=== PATIENT | male | born 1960 | race Caucasian/White ===

== ENCOUNTER 2017-06-24 20:43 | Inpatient (IN) | payer OTHER ==
[~2017-06-24] VITALS: Ht 172.7 cm; Wt 70.0 kg
[2017-06-24] MEDS ORDERED: VANCOMYCIN 1 GM (PMX) 250 ML IVPB STA (21:51)
[2017-06-24] MEDS ORDERED: PIPER-TAZO 3.375 GM IV (PMX) 100 ML IVPB STA (22:19)
[2017-06-24 22:43] LABS: BASOPHILS % 0.2 % (0.0-2.0); EOSINOPHILS # 0.1 10^3/ul (0.0-0.5); EOSINOPHILS % 0.5 % (0.0-7.0); HEMATOCRIT 39.2 % (42.0-52.0); HEMOGLOBIN 13.3 g/dl (14.0-18.0); LYMPHOCYTES # 2.3 10^3/ul (0.8-2.9); LYMPHOCYTES % 22.4 % (15.0-51.0); MEAN CORPUSCULAR HEMOGLOBIN 29.2 pg (29.0-33.0); MEAN CORPUSCULAR HGB CONC 33.9 g/dl (32.0-37.0); MEAN CORPUSCULAR VOLUME 86.2 fl (82.0-101.0); MEAN PLATELET VOLUME 10.3 fl (7.4-10.4); MONOCYTE # 0.6 10^3/ul (0.3-0.9); NEUTROPHIL # 7.4 10^3/ul (1.6-7.5); NEUTROPHILS % 70.6 % (39.0-77.0); PLATELET COUNT 175 10^3/UL (140-415); RED BLOOD COUNT 4.55 10^6/ul (4.70-6.10); RED CELL DISTRIBUTION WIDTH 12.7 % (11.5-14.5); WHITE BLOOD COUNT 10.5 10^3/ul (4.8-10.8)
[2017-06-24 22:57] LABS: INR 0.97; PARTIAL THROMBOPLASTIN TIME 31.6 Sec (25.0-35.0); PROTIME 12.9 Sec (12.2-14.2)
[2017-06-24 23:01] LABS: ADD UMIC YES; UR ASCORBIC ACID NEGATIVE (NEGATIVE); UR BILIRUBIN (Dip) NEGATIVE (NEGATIVE); UR BLOOD (Dip) 1+ mg/dL (NEGATIVE); UR CLARITY CLEAR (CLEAR); UR COLOR YELLOW (YELLOW); UR GLUCOSE (Dip) NEGATIVE (NEGATIVE); UR KETONES (Dip) NEGATIVE (NEGATIVE); UR LEUKOCYTE ESTERASE (Dip) NEGATIVE Leu/ul (NEGATIVE); UR MUCUS FEW /HPF (NONE SEEN); UR NITRITE (Dip) NEGATIVE (NEGATIVE); UR RBC 12 /HPF (0-5); UR SPECIFIC GRAVITY (Dip) 1.024 (1.003-1.030); UR TOTAL PROTEIN (Dip) NEGATIVE (NEGATIVE); UR UROBILINOGEN (Dip) 1+ mg/dL (NEGATIVE)
[2017-06-24 23:12] LABS: ALBUMIN 3.8 g/dl (3.3-4.9); ALBUMIN/GLOBULIN RATIO 1.26; BILIRUBIN,INDIRECT 0.7 mg/dl (0-1.1); BILIRUBIN,TOTAL 0.7 mg/dl (0.2-1.3); CALCIUM 8.9 mg/dl (8.4-10.2); CREATININE 0.77 mg/dl (0.61-1.24); POTASSIUM 4.1 mmol/L (3.5-5.1); TOTAL PROTEIN 6.8 g/dl (6.1-8.1)
--- NOTE | 2017-06-24 23:50 | ERD ---
ER Documentation Chief Complaint Date/Time DATE: 06/24/17 TIME: 22:29 Chief Complaint left knee pain w/ open wound x 5 days HPI This is a 57-year-old male without any medical problems presenting to the emergency department complaining of left knee pain with surrounding redness for the past 5 days that started to radiate to his groin yesterday. Patient states the pain is moderate in severity. Denies fevers. ROS All systems reviewed and are negative except as per history of present illness. Allergies Allergies: Coded Allergies: No Known Allergy (Unverified , 06/24/17) PMhx/Soc Medical and Surgical Hx: pt denies Medical Hx, pt denies Surgical Hx Hx Alcohol Use: No Hx Substance Use: No Hx Tobacco Use: Yes Smoking Status: Current every day smoker Physical Exam Vitals Vital Signs Date Time Temp Pulse Resp B/P Pulse Ox O2 Delivery O2 Flow Rate FiO2 06/24/17 20:49 98.2 76 20 147/84 100 Physical Exam General: WD/WN, in no apparent distress, non-toxic appearing HENT: NC/AT Eyes: Conjunctiva normal Neck: Supple Pulm: Clear to auscultation, normal labored breathing; no wheezing/rales/ rhonchi heard CV: Good capillary refill GI: Non-distended, no guarding Back: No masses Ext: No clubbing, cyanosis, or edema Neuro: Moves on all fours Skin: abscess on the left knee with surrounding cellulitis and streaking to groin Psych: Normal mood Results 24 hrs Current Medications Medications (Trade) Dose Ordered Sig/Katherine Route PRN Reason Start Time Stop Time Status Last Admin Dose Admin Vancomycin HCl 250 ml @ 125 mls/hr ONCE STAT IVPB 06/24/17 21:51 06/24/17 23:50 Piperacillin Sod/ Tazobactam Sod (Zosyn 3.375gm/ 100 ml (Pmx)) 100 ml @ 200 mls/hr ONCE STAT IVPB 06/24/17 22:19 06/24/17 22:48 Procedures/MDM This is a 57-year-old male presenting to the emergency department with abscess/ cellulitis and lymphangitis. There was no evidence of sepsis, patient has stable vital signs. He will need to be admitted for IV antibiotics. In the ED, blood work was drawn. CBC did not show any evidence of leukocytosis or anemia. CMP was unremarkable. Patient was given 1 g of Vanco and 3.375 of Zosyn. I have consulted my supervising physician Dr. Adames who has consulted the hospitalist Dr. Frey who accepted admission. Patient will be transferred to med/surg for further management and evaluation Departure Diagnosis: Primary Impression: Lymphangitis Additional Impression: Cellulitis Condition: Stable GREGORY MASTERSON PA-C Jun 24, 2017 22:39
[2017-06-25 02:34] VITALS: TEMP 98
[2017-06-25 02:50] VITALS: BP 144/82; PULSE 65; RESP 18
[2017-06-25 03:03] VITALS: Ht 172.7 cm; Wt 70.0 kg
[2017-06-25] MEDS ORDERED: ONDANSETRON 4 MG INJ IV PRN (04:00)
[2017-06-25] MEDS ORDERED: DOCUSATE SODIUM 100 MG CAP PO PRN (04:00)
[2017-06-25] MEDS ORDERED: VANCOMYCIN IV PER PHARMACY XX SCH (04:00)
[2017-06-25] MEDS ORDERED: NACL 0.9% 3 ML SYG IV SCH (04:00)
[2017-06-25] MEDS ORDERED: ACETAMINOPHEN 325 MG TAB PO PRN (04:00)
[2017-06-25] MEDS ORDERED: morphine 2 MG INJ IV PRN (04:00)
--- NOTE | 2017-06-25 04:02 | HP ---
Date/Time of Note Date/Time of Note DATE: 06/25/17 TIME: 03:52 Assessment/Plan VTE Prophylaxis VTE Prophylaxis Intervention: SCD's Lines/Catheters IV Catheter Type (from [facility] Sal[facility] Assessment/Plan Chief Complaint/Hosp Course This is a 57-year-old male being admitted to the [facility] floor for: #1 left lower extremity cellulitis: At the current time we will continue patient on IV vancomycin and Zosyn. There is visible cellulitis over the left knee however no redness noted along the medial thigh. There is however a warmth and tightness noted of the left medial thigh moving up towards the groin area. Patient however denies any pain or tenderness or swelling of the scrotum. Patient does not have any fevers or white blood cell count at this time, however I would like to further evaluate the left lower extremity to rule out any underlying abscess or fluid collection or other infectious etiology with a stat CAT scan of the left lower extremity. Also check a stat CK total level and a lactic acid level. The patient with IV pain control. #2 DVT and GI prophylaxis: SCDs, H2 mony Further treatment strategy will be implemented as per the clinical course. Problems: HPI/ROS Admit Date/Time Admit Date/Time Jun 25, 2017 at 00:39 Hx of Present Illness chief complaint: left knee pain/redness This is a 57-year-old male coming into the hospital today with a left knee pain and redness for the last 5 days. 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 Over the last 5 days he has noticed some bloody drainage from the knee wound area. Patient also has noticed redness around the knee and pain that has gone from the left knee up the medial side of his left thigh. He did say that he was massaging his thigh as well which may have made the pain worse. He states that when he walks he has pain. The only time he does not have pain is when he is not moving his left lower extremity. He denies any fevers. Denies any chest pain or shortness of breath. Allergies: NKDA Medications: None ROS Const: As per HPI Eyes : No pain discharge or redness or change in visual acuity ENT: No pain, sore throat, congestion, congestion, dysphagia or discharge Respiratory: No shortness of breath, cough, sputum, wheezing, or pleuritic pain Cardiovascular: No chest pain, palpitation, PND, or edema GI : no change in appetite, abdominal pain, nausea, vomiting, diarrhea, constipation, or change in the color his stool Genitourinary: No dysuria, hematuria, flank pain , discharge or CVA tenderness Musculoskeletal: As per HPI Skin: As per HPI Neuro: No headache, dizziness, syncope, seizure, focal weakness Endocrine: No polyuria, polydipsia, temperature intolerance Psych: No hallucination, depression, anxiety or suicidal ideation PMH/Family/Social Past Medical History Medical History: no pertinent history Past Surgical History Past Surgical Hx: no surgical history Family History Significant Family History: no pertinent family hx Social History Alcohol Use: none Smoking Status: Current every day smoker (Half pack per day 30 years) Drug Use: none Exam/Review of Systems Vital Signs Vitals Vital Signs Date Time Temp Pulse Resp B/P Pulse Ox O2 Delivery O2 Flow Rate FiO2 06/25/17 02:34 98.0 59 118/67 99 Room Air 06/24/17 23:49 19 Exam Exam General: Patient is well-developed male lying in bed in some mild pain. HEENT: Atraumatic, normocephalic. The pupils are equal, round and reactive. Extraocular motor are intact Neck: Supple with full range of motion. No rigidity or meningismus Chest: Nontender Lungs: Clear to auscultation bilaterally no crackles rales or wheezing Heart: Normal S1-S2, Regular rhythm and rate. No murmur, S3, or S4 Abdomen: Soft , nontender, nondistended , bowel sounds are present. No guarding no rebound tenderness , No masses or organomegaly. No costovertebral temporal angle mass Extremities: Wound noted of the left anterior knee with serosanguineous dry drainage , left knee tenderness to palpation, tender to palpation from the left knee along the medial aspect of the left thigh. No redness noted along the medial aspect of the left thigh. Tightness of the muscles of the left medial thigh. Neurologic: Normal mental status, speech normal, cranial nerves II through XII are intact, motor and sensory are intact, no focal weakness Labs Result Diagram: 06/24/17 2225 06/24/17 2225 CONSTANTINO VEGA Jun 25, 2017 04:01
[2017-06-25] MEDS: SOD CHLORIDE 0.9% 1,000 ML IV SCH ×2 (04:30→17:09)
[2017-06-25] MEDS: PIPER-TAZO 3.375 GM IV (PMX) 100 ML IVPB SCH ×3 (04:30→23:07)
[2017-06-25] MEDS ORDERED: PENDING SANTYL ORDER FOR WOUND CARE XX PRN (04:30)
[2017-06-25 08:35] VITALS: BP 111/71; RESP 18
[2017-06-25] MEDS: VANCOMYCIN 1 GM in NS 250 ML IVPB SCH ×2 (08:41→20:30)
[2017-06-25] MEDS: FAMOTIDINE 20 MG TAB PO SCH ×3 (08:41→20:30)
[2017-06-25 12:35] LABS: BASOPHILS % 0.2 % (0.0-2.0); EOSINOPHILS # 0.1 10^3/ul (0.0-0.5); EOSINOPHILS % 0.6 % (0.0-7.0); HEMOGLOBIN 12.8 g/dl (14.0-18.0); LYMPHOCYTES # 1.6 10^3/ul (0.8-2.9); LYMPHOCYTES % 19.8 % (15.0-51.0); MEAN CORPUSCULAR HGB CONC 33.7 g/dl (32.0-37.0); MEAN CORPUSCULAR VOLUME 86.2 fl (82.0-101.0); MEAN PLATELET VOLUME 10.5 fl (7.4-10.4); MONOCYTE # 0.5 10^3/ul (0.3-0.9); MONOCYTES % 5.7 % (0.0-11.0); NEUTROPHIL # 5.9 10^3/ul (1.6-7.5); NEUTROPHILS % 73.5 % (39.0-77.0); PLATELET COUNT 170 10^3/UL (140-415); RED BLOOD COUNT 4.41 10^6/ul (4.70-6.10); RED CELL DISTRIBUTION WIDTH 13.2 % (11.5-14.5); WHITE BLOOD COUNT 8.1 10^3/ul (4.8-10.8)
[2017-06-25 12:55] LABS: ALBUMIN 3.3 g/dl (3.3-4.9); ALBUMIN/GLOBULIN RATIO 1.22; BILIRUBIN,INDIRECT 1.6 mg/dl (0-1.1); BILIRUBIN,TOTAL 1.6 mg/dl (0.2-1.3); CALCIUM 8.5 mg/dl (8.4-10.2); CHOL/HDL RATIO 3.7 RATIO; CREATININE 0.72 mg/dl (0.61-1.24); MAGNESIUM 2.1 mg/dl (1.7-2.5); POTASSIUM 4.2 mmol/L (3.5-5.1)
[2017-06-25 14:29] VITALS: BP 103/60; RESP 20
[2017-06-25 19:30] VITALS: BP 107/54; RESP 16
[2017-06-26 02:00] VITALS: BP 102/56; RESP 18
[2017-06-26] MEDS: SOD CHLORIDE 0.9% 1,000 ML IV SCH ×2 (04:43→10:04)
[2017-06-26] MEDS: PIPER-TAZO 3.375 GM IV (PMX) 100 ML IVPB SCH ×3 (05:08→22:14)
[2017-06-26 07:58] VITALS: BP 115/73; RESP 16
[2017-06-26 09:26] LABS: CREATININE 0.89 mg/dl (0.61-1.24)
[2017-06-26] MEDS: VANCOMYCIN 1 GM in NS 250 ML IVPB SCH (10:02)
[2017-06-26] MEDS: FAMOTIDINE 20 MG TAB PO SCH ×2 (10:02→22:14)
[2017-06-26 14:00] VITALS: BP 111/75; RESP 18
[2017-06-26] MEDS ORDERED: IOHEXOL 300MG/ML 150 ML BTL ONE (16:56)
[2017-06-26] MEDS ORDERED: SOD CHLORIDE 0.9% 100 ML ONE (16:56)
--- NOTE | 2017-06-26 18:05 | PN ---
Date/Time of Note Date/Time of Note DATE: 06/26/17 TIME: 18:04 Assessment/Plan VTE Prophylaxis VTE Prophylaxis Intervention: SCD's Lines/Catheters IV Catheter Type (from Nrs): Peripheral IV Urinary Cath still in place: No Assessment/Plan Assessment/Plan #1 left lower extremity cellulitis: At the current time we will continue patient on IV vancomycin and Zosyn. There is visible cellulitis over the left knee however no redness noted along the medial thigh. There is however a warmth and tightness noted of the left medial thigh moving up towards the groin area. Patient however denies any pain or tenderness or swelling of the scrotum. Patient does not have any fevers or white blood cell count at this time, however I would like to further evaluate the left lower extremity to rule out any underlying abscess or fluid collection or other infectious etiology with a stat CAT scan of the left lower extremity. CT Knee has been ordered #2 DVT and GI prophylaxis: SCDs, H2 mony Further treatment strategy will be implemented as per the clinical course. Subjective 24 Hr Interval Summary Free Text/Dictation plan for CT today c/o knee pain Exam/Review of Systems Vital Signs Vitals Vital Signs Date Time Temp Pulse Resp B/P Pulse Ox O2 Delivery O2 Flow Rate FiO2 06/26/17 14:00 97.3 64 18 111/75 98 06/25/17 02:50 Room Air Intake and Output 06/25/17 06/25/17 06/26/17 15:00 23:00 07:00 Intake Total 250 ml 2830 ml 1240 ml Output Total 1300 ml Balance 250 ml 1530 ml 1240 ml Results Result Diagram: 06/25/17 1210 06/26/17 0839 Results 24 hrs Laboratory Tests Test 06/26/17 08:39 Blood Urea Nitrogen 11 Creatinine 0.89 Thyroid Stimulating Hormone (TSH) 0.896 Vancomycin Level Trough 8.8 L Medications Medications Current Medications Sodium Chloride (NS) 1,000 ml @ 80 mls/hr [id number] IV Last administered on 06/26t 10:04; Admin Dose 80 MLS/HR; Start 06/25/17 at 03:46 Ondansetron HCl (Zofran Inj) 4 mg Q6H PRN IV NAUSEA AND/OR VOMITING; Start 06/25 at 04:00 Acetaminophen (Tylenol Tab) 650 mg Q6H PRN PO PAIN LEVEL 1-3 OR FEVER Last administered on 06/25/17 14:57; Admin Dose 650 MG; Start 06/25/17 at 04:00 Morphine Sulfate (morphine) 2 mg Q4H PRN IV SEVERE PAIN LEVEL 7-10; Start at 04:00 Docusate Sodium (Colace) 100 mg Q12H PRN PO CONSTIPATION; Start 06/25/17 at 04: 00 Bisacodyl (Dulcolax) 5 mg DAILY PRN PO CONSTIPATION; Start 06/25/17 at 04:00 Famotidine 20 mg 20 mg Q12 PO Last administered on 06/26/17 10:02; Admin Dose 20 MG; Start 06/25/17 at 09:00 Piperacillin Sod/ Tazobactam Sod (Zosyn 3.375gm/ 100 ml (Pmx)) 100 ml @ 200 mls /hr Q8 IVPB Last administered on 06/26/17 13:50; Admin Dose 200 MLS/HR; Start 06/25/17 at 06:00 Miscellaneous Information This patient fay... PRN PRN XX WOUND CARE; Start at 04:30 Vancomycin HCl/ Sodium Chloride (Vancocin/NS) 250 ml @ 83.333 mls/ hr Q12H IVPB ; Start 06/26/17 at 22:00 NICOLAS KNIGHT MD Jun 26, 2017 18:05
--- NOTE | 2017-06-26 18:11 | RADRPT ---
PROCEDURE: CT left femur without and with intravenous contrast CLINICAL INDICATION: 57 years male left knee were not. Cellulitis and left thigh pain. TECHNIQUE: A noncontrast CT of the left femur from the left iliac wing to the proximal tibia was p erformed without and with intravenous contrast. 108 mL Omnipaque 300 was administered intravenously. Coronal and sagittal reformats were generated. CTDIvol: 4.5 and 5.5 mGy. DLP: 659 mGy-cm. COMPARISON: None. FINDINGS: There is a 0.9 x 1.8 cm fluid collection immediately beneath the skin at the anteromedial aspect of the patella that likely represents the patient's wound possibly with a small abscess. There is asso ciated soft tissue swelling within the subcutaneous fat greatest anterior to the patella and patella r tendon but also involving the subcutaneous fat of the distal thigh and proximal lower leg. There is a 0.8 x 2.9 x 4 cm fluid collection overlying the vastus medialis muscle at the medial aspect of the knee without internal gas and without a thick enhancing wall (5/195). No other fluid collection s are identified. Negative for abnormal soft tissue gas. No bony abnormality is identified. Normal alignment of the knee and hip. Small amount of knee join t fluid. Mild atherosclerosis superficial femoral artery. Arteries are patent. IMPRESSION: Small fluid collection in the in the subcutaneous fat beneath the skin anteromedial to the patella l ikely corresponds to the site of the patient's open wound and may represent a small abscess. There is edema in the surrounding subcutaneous fat extending into the distal thigh and lower leg in keepin g with the given history of cellulitis. Negative for abnormal soft tissue gas. Small fluid collection overlying vastus medialis muscle at the medial aspect of the knee is favored to represent loculated edema rather than an organized abscess. It measures 0.8 x 2.9 x 4 cm. RPTAT: HCTS Physician Maikel Date Time Electronically viewed and signed by Physician Maikel on 06/26/2017 18:10 /
[2017-06-26 19:32] VITALS: BP 112/72; RESP 20
[2017-06-26] MEDS: VANCOMYCIN 1.25 GM in SOD CHLORIDE 0.9% 250 ML IVPB SCH (22:14)
[2017-06-27 02:03] VITALS: BP 106/63; RESP 16
[2017-06-27] MEDS: PIPER-TAZO 3.375 GM IV (PMX) 100 ML IVPB SCH ×3 (05:29→23:02)
[2017-06-27] MEDS: SOD CHLORIDE 0.9% 1,000 ML IV SCH ×3 (05:30→23:03)
[2017-06-27 06:37] LABS: BASOPHILS % 0.3 % (0.0-2.0); EOSINOPHILS # 0.1 10^3/ul (0.0-0.5); EOSINOPHILS % 0.8 % (0.0-7.0); HEMATOCRIT 36.5 % (42.0-52.0); HEMOGLOBIN 12.2 g/dl (14.0-18.0); LYMPHOCYTES # 2.1 10^3/ul (0.8-2.9); LYMPHOCYTES % 29.8 % (15.0-51.0); MEAN CORPUSCULAR HEMOGLOBIN 29.3 pg (29.0-33.0); MEAN CORPUSCULAR HGB CONC 33.4 g/dl (32.0-37.0); MEAN CORPUSCULAR VOLUME 87.7 fl (82.0-101.0); MEAN PLATELET VOLUME 10.3 fl (7.4-10.4); MONOCYTE # 0.4 10^3/ul (0.3-0.9); NEUTROPHIL # 4.5 10^3/ul (1.6-7.5); PLATELET COUNT 169 10^3/UL (140-415); RED BLOOD COUNT 4.16 10^6/ul (4.70-6.10); WHITE BLOOD COUNT 7.1 10^3/ul (4.8-10.8)
[2017-06-27 07:15] VITALS: BP 105/61; RESP 18
[2017-06-27 07:24] LABS: CALCIUM 8.3 mg/dl (8.4-10.2); CREATININE 0.9 mg/dl (0.61-1.24); POTASSIUM 3.9 mmol/L (3.5-5.1)
[2017-06-27] MEDS: FAMOTIDINE 20 MG TAB PO SCH ×2 (09:37→23:02)
[2017-06-27] MEDS: BISACODYL (EC) 5 MG TAB PO PRN (09:37)
[2017-06-27] MEDS: VANCOMYCIN 1.25 GM in SOD CHLORIDE 0.9% 250 ML IVPB SCH ×2 (09:39→23:02)
[2017-06-27 14:02] VITALS: BP_SYST 105; BP_SYST 110; BP_DIAS 51; BP_DIAS 61; RESP 16; RESP 18
--- NOTE | 2017-06-27 15:36 | PN ---
Date/Time of Note Date/Time of Note DATE: 06/27/17 TIME: 15:34 Assessment/Plan VTE Prophylaxis VTE Prophylaxis Intervention: SCD's Lines/Catheters IV Catheter Type (from Nrsg): Peripheral IV Urinary Cath still in place: No Assessment/Plan Assessment/Plan #1 left lower extremity cellulitis: CT Knee showed significant edema with fluid collection, continue IV abx, Pain control, wound care consult orderd for today Case jessenia is instructed to set up home healh for wound care, Pt will need few more days of IV abx further #2 DVT and GI prophylaxis: SCDs, H2 mony Subjective 24 Hr Interval Summary Free Text/Dictation CT knee showed fluid colleciton more like edema vs collection, Afebrile, WBC COunt normal, on IV abx Exam/Review of Systems Vital Signs Vitals Vital Signs Date Time Temp Pulse Resp B/P Pulse Ox O2 Delivery O2 Flow Rate FiO2 06/27/17 14:02 98.2 55 16 110/51 98 06/25/17 02:50 Room Air Intake and Output 06/26/17 06/26/17 06/27/17 15:00 23:00 07:00 Intake Total 550 ml 1580 ml 1760 ml Balance 550 ml 1580 ml 1760 ml Exam Constitutional: alert Psych: no complaints Head: normocephalic Eyes: nl conjunctiva ENMT: nl external ears & nose Neck: supple Respiratory: clear to auscultation, diminished breath sounds, normal air movement Cardiovascular: nl pulses, regular rate and rhythm Gastrointestinal: nl liver, spleen, non-tender, soft Musculoskeletal: nl extremities to inspection, other (left knee redness iwth overlying dressing on it ) 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5 Lymphocytes # 2.1 Monocytes # 0.4 Eosinophils # 0.1 Basophils # 0.0 Nucleated Red Blood Cells # 0.0 Sodium Level 143 Potassium Level 3.9 Chloride Level 105 Carbon Dioxide Level 27 Anion Gap 15 Blood Urea Nitrogen 12 Creatinine 0.90 Glucose Level 83 Calcium Level 8.3 L Medications Medications Current Medications Sodium Chloride (NS) 1,000 ml @ 80 mls/hr [id number] IV Last administered on 06/27 05:30; Admin Dose 80 MLS/HR; Start 06/25/17 at 03:46 Ondansetron HCl (Zofran Inj) 4 mg Q6H PRN IV NAUSEA AND/OR VOMITING; Start 06/25 at 04:00 Acetaminophen (Tylenol Tab) 650 mg Q6H PRN PO PAIN LEVEL 1-3 OR FEVER Last administered on 06/25/17 14:57; Admin Dose 650 MG; Start 06/25/17 at 04:00 Morphine Sulfate (morphine) 2 mg Q4H PRN IV SEVERE PAIN LEVEL 7-10; Start at 04:00 Docusate Sodium (Colace) 100 mg Q12H PRN PO CONSTIPATION; Start 06/25/17 at 04: 00 Bisacodyl (Dulcolax) 5 mg DAILY PRN PO CONSTIPATION; Start 06/25/17 at 04:00 Famotidine 20 mg 20 mg Q12 PO Last administered on 06/27/17 09:37; Admin Dose 20 MG; Start 06/25/17 at 09:00 Piperacillin Sod/ Tazobactam Sod (Zosyn 3.375gm/ 100 ml (Pmx)) 100 ml @ 200 mls /hr Q8 IVPB Last administered on 06/27/17 14:36; Admin Dose 200 MLS/HR; Start 06/25/17 at 06:00 Miscellaneous Information This patient fay... PRN PRN XX WOUND CARE; Start at 04:30 Vancomycin HCl/ Sodium Chloride (Vancocin/NS) 250 ml @ 83.333 mls/ hr Q12H IVPB Last administered on 06/27/17 09:39; Admin Dose 83.333 MLS/HR; Start 09/02 at 22:00 NICOLAS KNIGHT MD Jun 27, 2017 15:36
[2017-06-27 20:52] VITALS: BP 117/73; RESP 18
[2017-06-28 02:00] VITALS: BP 100/83; RESP 17
[2017-06-28] MEDS: PIPER-TAZO 3.375 GM IV (PMX) 100 ML IVPB SCH ×2 (05:58→17:37)
[2017-06-28 06:14] LABS: INR 0.91; PROTIME 12.3 Sec (12.2-14.2)
[2017-06-28 06:15] LABS: PARTIAL THROMBOPLASTIN TIME 29.1 Sec (25.0-35.0)
[2017-06-28 06:21] LABS: CALCIUM 8.6 mg/dl (8.4-10.2); CREATININE 0.85 mg/dl (0.61-1.24); POTASSIUM 4.1 mmol/L (3.5-5.1)
[2017-06-28 07:59] VITALS: BP 110/71; RESP 16
[2017-06-28] MEDS: FAMOTIDINE 20 MG TAB PO SCH ×2 (08:25→20:26)
[2017-06-28] MEDS: VANCOMYCIN 1.25 GM in SOD CHLORIDE 0.9% 250 ML IVPB SCH ×2 (11:15→22:04)
--- NOTE | 2017-06-28 13:28 | PN ---
Date/Time of Note Date/Time of Note DATE: 06/28/17 TIME: 13:27 Assessment/Plan VTE Prophylaxis VTE Prophylaxis Intervention: SCD's Lines/Catheters IV Catheter Type (from Nrsg): Peripheral IV Urinary Cath still in place: No Assessment/Plan Assessment/Plan #1 left lower extremity cellulitis: CT Knee showed significant edema with fluid collection, continue IV abx, Pain control, wound care consult orderd for today Case jessenia is instructed to set up home healh for wound care, Pt will need few more days of IV abx further #2 DVT and GI prophylaxis: SCDs, H2 mony Subjective 24 Hr Interval Summary Free Text/Dictation doing ok, BP stable, afebrile Exam/Review of Systems Vital Signs Vitals Vital Signs Date Time Temp Pulse Resp B/P Pulse Ox O2 Delivery O2 Flow Rate FiO2 06/28/17 07:59 98.2 51 16 110/71 95 06/25/17 02:50 Room Air Intake and Output 06/27/17 06/27/17 06/28/17 15:00 23:00 07:00 Intake Total 1000 ml 1350 ml Balance 1000 ml 1350 ml Exam Constitutional: alert Psych: no complaints Head: normocephalic Eyes: nl conjunctiva ENMT: nl external ears & nose Neck: supple Respiratory: clear to auscultation, diminished breath sounds, normal air movement Cardiovascular: nl pulses, regular rate and rhythm Gastrointestinal: nl liver, spleen, non-tender, soft Musculoskeletal: nl extremities to inspection, other (left knee redness iwth overlying dressing on it ) 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, nl mental status, nl speech, nl strength Skin: nl turgor, rash or lesions Lymph: nl lymph nodes Results Result Diagram: 06/27/17 0609 06/28/17 0520 Results 24 hrs Laboratory Tests Test 06/28/17 05:20 Prothrombin Time 12.3 Prothrombin Time Ratio 1.0 INR International Normalized Ratio 0.91 Activated Partial Thromboplast Time 29.1 Sodium Level 144 Potassium Level 4.1 Chloride Level 106 Carbon Dioxide Level 28 Anion Gap 14 Blood Urea Nitrogen 11 Creatinine 0.85 Glucose Level 100 Calcium Level 8.6 Medications Medications Current Medications Sodium Chloride (NS) 1,000 ml @ 80 mls/hr [id number] IV Last administered on 06/27t 23:03; Admin Dose 80 MLS/HR; Start 06/25/17 at 03:46 Ondansetron HCl (Zofran Inj) 4 mg Q6H PRN IV NAUSEA AND/OR VOMITING; Start 06/25 at 04:00 Acetaminophen (Tylenol Tab) 650 mg Q6H PRN PO PAIN LEVEL 1-3 OR FEVER Last administered on 06/25/17 14:57; Admin Dose 650 MG; Start 06/25/17 at 04:00 Morphine Sulfate (morphine) 2 mg Q4H PRN IV SEVERE PAIN LEVEL 7-10; Start at 04:00 Docusate Sodium (Colace) 100 mg Q12H PRN PO CONSTIPATION; Start 06/25/17 at 04: 00 Bisacodyl (Dulcolax) 5 mg DAILY PRN PO CONSTIPATION; Start 06/25/17 at 04:00 Famotidine 20 mg 20 mg Q12 PO Last administered on 06/28/17 08:25; Admin Dose 20 MG; Start 06/25/17 at 09:00 Piperacillin Sod/ Tazobactam Sod (Zosyn 3.375gm/ 100 ml (Pmx)) 100 ml @ 200 mls /hr Q8 IVPB Last administered on 06/28/17 05:58; Admin Dose 200 MLS/HR; Start 06/25/17 at 06:00 Miscellaneous Information This patient fay... PRN PRN XX WOUND CARE; Start at 04:30 Vancomycin HCl/ Sodium Chloride (Vancocin/NS) 250 ml @ 83.333 mls/ hr Q12H IVPB Last administered on 06/28/17 11:15; Admin Dose 83.333 MLS/HR; Start 09/02 at 22:00 NICOLAS KNIGHT MD Jun 28, 2017 13:28
[2017-06-28 14:00] VITALS: BP 125/81; RESP 16
[2017-06-28] MEDS: SOD CHLORIDE 0.9% 1,000 ML IV SCH (17:42)
[2017-06-28 20:52] VITALS: BP 97/53; RESP 18
[2017-06-29] MEDS: PIPER-TAZO 3.375 GM IV (PMX) 100 ML IVPB SCH ×4 (01:13→23:23)
[2017-06-29 02:00] VITALS: BP 108/61; RESP 19
[2017-06-29] MEDS: SOD CHLORIDE 0.9% 1,000 ML IV SCH ×2 (08:10→20:14)
[2017-06-29] MEDS: MUPIROCIN 2% 22 GM OINT TOP SCH (08:10)
[2017-06-29] MEDS: FAMOTIDINE 20 MG TAB PO SCH ×2 (08:10→20:11)
[2017-06-29 08:49] VITALS: BP 126/78; RESP 18
[2017-06-29] MEDS: VANCOMYCIN 1 GM in NS 250 ML IVPB SCH ×2 (10:33→21:23)
[2017-06-29 14:32] VITALS: BP 125/81; RESP 18
--- NOTE | 2017-06-29 15:20 | PN ---
Date/Time of Note Date/Time of Note DATE: 06/29/17 TIME: 15:17 Assessment/Plan VTE Prophylaxis VTE Prophylaxis Intervention: SCD's Lines/Catheters IV Catheter Type (from Nrsg): Peripheral IV Urinary Cath still in place: No Assessment/Plan Assessment/Plan #1 left lower extremity cellulitis: CT Knee showed significant edema with fluid collection- discussed with radiology , likely more edema vs fluid no drainable collection continue IV abx, Pain control, awaiting wound care consult evaluation Case jessenia is instructed to set up home healh for wound care, on IV abx #2 DVT and GI prophylaxis: SCDs, H2 mony Subjective 24 Hr Interval Summary Free Text/Dictation awaiting wound care nurse evaluatio, [facility] also requested for patient for wound care at home,a febrile, BP stable Exam/Review of Systems Vital Signs Vitals Vital Signs Date Time Temp Pulse Resp B/P Pulse Ox O2 Delivery O2 Flow Rate FiO2 06/29/17 14:32 97.6 54 18 125/81 100 Intake and Output 06/28/17 06/28/17 06/29/17 15:00 23:00 07:00 Intake Total 250 ml 2380 ml 1690 ml Balance 250 ml 2380 ml 1690 ml Exam Constitutional: alert Respiratory: clear to auscultation, diminished breath sounds, normal air movement Cardiovascular: nl pulses, regular rate and rhythm Gastrointestinal: nl liver, spleen, non-tender, soft Musculoskeletal: nl extremities to inspection, other (left knee redness iwth overlying dressing on it ) 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, nl mental status, nl speech, nl strength Skin: nl turgor, rash or lesions Lymph: nl lymph nodes Results Result Diagram: 06/27/17 0609 06/28/17 0520 Results 24 hrs Laboratory Tests Test 06/28/17 20:43 Vancomycin Level Trough 15.0 Medications Medications Current Medications Sodium Chloride (NS) 1,000 ml @ 80 mls/hr [id number] IV Last administered on 06/29t 08:10; Admin Dose 80 MLS/HR; Start 06/25/17 at 03:46 Ondansetron HCl (Zofran Inj) 4 mg Q6H PRN IV NAUSEA AND/OR VOMITING; Start 06/25 at 04:00 Acetaminophen (Tylenol Tab) 650 mg Q6H PRN PO PAIN LEVEL 1-3 OR FEVER Last administered on 06/25/17 14:57; Admin Dose 650 MG; Start 06/25/17 at 04:00 Morphine Sulfate (morphine) 2 mg Q4H PRN IV SEVERE PAIN LEVEL 7-10; Start at 04:00 Docusate Sodium (Colace) 100 mg Q12H PRN PO CONSTIPATION; Start 06/25/17 at 04: 00 Bisacodyl (Dulcolax) 5 mg DAILY PRN PO CONSTIPATION; Start 06/25/17 at 04:00 Famotidine 20 mg 20 mg Q12 PO Last administered on 06/29/17 08:10; Admin Dose 20 MG; Start 06/25/17 at 09:00 Piperacillin Sod/ Tazobactam Sod (Zosyn 3.375gm/ 100 ml (Pmx)) 100 ml @ 200 mls /hr Q8 IVPB Last administered on 06/29/17 14:45; Admin Dose 200 MLS/HR; Start 06/25/17 at 06:00 [facility] This patient fay... PRN PRN XX WOUND CARE; Start 06/25/17 at 04:30 Mupirocin 1 applic 1 applic DAILY TOP Last administered on 06/29/17 08:10; Admin Dose 1 APPLIC; Start 06/29/17 at 09:00 Vancomycin HCl (Vancocin) 250 ml @ 125 mls/hr Q12H IVPB Last administered on 10:33; Admin Dose 125 MLS/HR; Start 06/29/17 at 10:00 NICOLAS KNIGHT MD Jun 29, 2017 15:19
[2017-06-29] MEDS: BISACODYL (EC) 5 MG TAB PO PRN (17:50)
[2017-06-29 20:20] VITALS: BP 137/86; RESP 20
[2017-06-30 02:55] VITALS: BP 126/65; RESP 18
[2017-06-30] MEDS: SOD CHLORIDE 0.9% 1,000 ML IV SCH ×2 (03:01→17:58)
[2017-06-30] MEDS: PIPER-TAZO 3.375 GM IV (PMX) 100 ML IVPB SCH ×3 (05:35→21:40)
[2017-06-30 06:00] LABS: BASOPHILS % 0.4 % (0.0-2.0); EOSINOPHILS # 0.1 10^3/ul (0.0-0.5); EOSINOPHILS % 0.9 % (0.0-7.0); HEMATOCRIT 38.7 % (42.0-52.0); HEMOGLOBIN 12.7 g/dl (14.0-18.0); LYMPHOCYTES # 2.3 10^3/ul (0.8-2.9); LYMPHOCYTES % 33.8 % (15.0-51.0); MEAN CORPUSCULAR HEMOGLOBIN 28.5 pg (29.0-33.0); MEAN CORPUSCULAR HGB CONC 32.8 g/dl (32.0-37.0); MONOCYTE # 0.4 10^3/ul (0.3-0.9); MONOCYTES % 6.2 % (0.0-11.0); NEUTROPHILS % 58.3 % (39.0-77.0); PLATELET COUNT 194 10^3/UL (140-415); RED BLOOD COUNT 4.45 10^6/ul (4.70-6.10); RED CELL DISTRIBUTION WIDTH 13.1 % (11.5-14.5); WHITE BLOOD COUNT 6.9 10^3/ul (4.8-10.8)
[2017-06-30 06:29] LABS: INR 1.03; PROTIME 13.5 Sec (12.2-14.2); PT RATIO 1.1
[2017-06-30 06:30] LABS: PARTIAL THROMBOPLASTIN TIME 30.5 Sec (25.0-35.0)
[2017-06-30 06:36] LABS: CALCIUM 9.1 mg/dl (8.4-10.2); CREATININE 0.92 mg/dl (0.61-1.24); POTASSIUM 4.8 mmol/L (3.5-5.1)
[2017-06-30 08:15] VITALS: BP 125/60; RESP 18
[2017-06-30] MEDS: MUPIROCIN 2% 22 GM OINT TOP SCH (09:33)
[2017-06-30] MEDS: VANCOMYCIN 1 GM in NS 250 ML IVPB SCH ×2 (09:33→22:28)
[2017-06-30] MEDS: FAMOTIDINE 20 MG TAB PO SCH ×2 (09:33→21:39)
--- NOTE | 2017-06-30 09:38 | PN ---
Date/Time of Note Date/Time of Note DATE: 06/30/17 TIME: 09:38 Assessment/Plan VTE Prophylaxis VTE Prophylaxis Intervention: ambulation, SCD's Lines/Catheters IV C[facility]ter Type (from [facility]): Peripheral IV Urinary Cath still in place: No Assessment/Plan Chief Complaint/Hosp Course 1 . Cellulitis, left knee. -Obtain wound culture, continue current antibiotics and pain control. -Continue wound care. Plan: Pending wound care evaluation. Continue current antibiotics and follow- up cultures. Case discussed with Problems: Subjective 24 Hr Interval Summary Free Text/Dictation Patient lying in bed comfortably. Not in any acute distress. Exam/Review of Systems Vital Signs Vitals Vital Signs Date Time Temp Pulse Resp B/P Pulse Ox O2 Delivery O2 Flow Rate FiO2 06/30/17 08:15 98.0 50 18 125/60 99 Intake and Output 06/29/17 06/29/17 06/30/17 15:00 23:00 07:00 Intake Total 410 ml 2060 ml 1735 ml Balance 410 ml 2060 ml 1735 ml Exam General: Well developed,adequately built, not in any acute distress . HEENT: Normocephalic, Atraumatic, No laceration or hematoma; Eyes: PEERL, Conjunctiva clear, Anicteric sclera Neck: Supple without any lymphadenopathy, nontender, no JVD, no carotid bruits, trachea midline, no thyromegaly Cardiac: S1, S2 auscultated, regular rhythm and rate, no mumurs or gallop Pulmonary: Normal respiratory effort. Chest clear to auscultation bilaterally, no adventitious breath sounds GI: Abdomen normal to inspection. Soft, non tender, non- distended, no masses, no rebound tenderness or guarding. Bowel sounds active on all four quadrants Genitourinary: Deferred Extremities: Left knee with mildly oozing wound. No cyanosis, clubbing, or edema. Pulses [2+] bilaterally. Full ROM on all four extremities. No focal weakness appreciated. Neurologic: Alert to person, place, time, and situation. Affect appropriate, intact sensation. Skin: Clean,dry, and intact. No ecchymosis, no rashes, or lesions Results Result Diagram: 06/30/17 0520 06/30/17 0520 Results 24 hrs Laboratory Tests Test 06/30/17 05:20 White Blood Count 6.9 Red Blood Count 4.45 L Hemoglobin 12.7 L Hematocrit 38.7 L Mean Corpuscular Volume 87.0 Mean Corpuscular Hemoglobin 28.5 L Mean Corpuscular Hemoglobin Concent 32.8 Red Cell Distribution Width 13.1 Platelet Count 194 Mean Platelet Volume 10.0 Neutrophils % 58.3 Lymphocytes % 33.8 Monocytes % 6.2 Eosinophils % 0.9 Basophils % 0.4 Nucleated Red Blood Cells % 0.0 Neutrophils # 4.0 Lymphocytes # 2.3 Monocytes # 0.4 Eosinophils # 0.1 Basophils # 0.0 Nucleated Red Blood Cells # 0.0 Prothrombin Time 13.5 Prothrombin Time Ratio 1.1 INR International Normalized Ratio 1.03 Activated Partial Thromboplast Time 30.5 Sodium Level 144 Potassium Level 4.8 Chloride Level 105 Carbon Dioxide Level 29 Anion Gap 15 Blood Urea Nitrogen 12 Creatinine 0.92 Glucose Level 90 Calcium Level 9.1 Medications Medications Current Medications Sodium Chloride (NS) 1,000 ml @ 80 mls/hr [id number] IV Last administered on 06/30 03:01; Admin Dose 80 MLS/HR; Start 06/25/17 at 03:46 Ondansetron HCl (Zofran Inj) 4 mg Q6H PRN IV NAUSEA AND/OR VOMITING; Start 06/25 at 04:00 Acetaminophen (Tylenol Tab) 650 mg Q6H PRN PO PAIN LEVEL 1-3 OR FEVER Last administered on 06/25/17 14:57; Admin Dose 650 MG; Start 06/25/17 at 04:00 Morphine Sulfate (morphine) 2 mg Q4H PRN IV SEVERE PAIN LEVEL 7-10; Start at 04:00 Docusate Sodium (Colace) 100 mg Q12H PRN PO CONSTIPATION; Start 06/25/17 at 04: 00 Bisacodyl (Dulcolax) 5 mg DAILY PRN PO CONSTIPATION Last administered on 17:50; Admin Dose 5 MG; Start 06/25/17 at 04:00 Famotidine 20 mg 20 mg Q12 PO Last administered on 06/29/17 20:11; Admin Dose 20 MG; Start 06/25/17 at 09:00 Piperacillin Sod/ Tazobactam Sod (Zosyn 3.375gm/ 100 ml (Pmx)) 100 ml @ 200 mls /hr Q8 IVPB Last administered on 06/30/17 05:35; Admin Dose 200 MLS/HR; Start 06/25/17 at 06:00 Miscellaneous [facility] This patient fay... PRN PRN XX WOUND CARE; Start 06/25/17 at 04:30 Mupirocin 1 applic 1 applic DAILY TOP Last administered on 06/29/17 08:10; Admin Dose 1 APPLIC; Start 06/29/17 at 09:00 Vancomycin HCl (Vancocin) 250 ml @ 125 mls/hr Q12H IVPB Last administered on 21:23; Admin Dose 125 MLS/HR; Start 06/29/17 at 10:00 NÉSTOR RAYA NP Jun 30, 2017 09:38
[2017-06-30] MEDS ORDERED: SILVER SULFADIAZINE 1% 25 GM CR TOP ONE (11:00)
[2017-06-30 14:19] VITALS: BP 122/77; RESP 16
[2017-06-30 20:58] VITALS: BP 131/78; RESP 19
[2017-07-01 02:57] VITALS: BP 129/77; RESP 18
[2017-07-01] MEDS: PIPER-TAZO 3.375 GM IV (PMX) 100 ML IVPB SCH ×3 (05:35→21:00)
[2017-07-01 08:00] VITALS: BP 119/67; RESP 18
[2017-07-01] MEDS: FAMOTIDINE 20 MG TAB PO SCH ×2 (09:27→20:58)
[2017-07-01] MEDS: MUPIROCIN 2% 22 GM OINT TOP SCH (09:28)
[2017-07-01] MEDS: SOD CHLORIDE 0.9% 1,000 ML IV SCH ×2 (09:29→22:16)
[2017-07-01] MEDS: VANCOMYCIN 1 GM in NS 250 ML IVPB SCH ×2 (09:33→22:44)
--- NOTE | 2017-07-01 11:15 | PN ---
Date/Time of Note Date/Time of Note DATE: 07/01/17 TIME: 11:15 Assessment/Plan VTE Prophylaxis VTE Prophylaxis Intervention: ambulation Lines/Catheters [facility] Peripheral IV Urinary Cath still in place: No Assessment/Plan Chief Complaint/Hosp Course 1 . Cellulitis, left knee. -continue current antibiotics and pain control. -Continue wound care and follow-up final wound cultures. Plan: Follow-up wound culture. Case discussed with Problems: Subjective 24 Hr Interval Summary Free Text/Dictation No acute overnight episodes. Exam/Review of Systems Vital Signs Vitals Vital Signs Date Time Temp Pulse Resp B/P Pulse Ox O2 Delivery O2 Flow Rate FiO2 07/01/17 08:00 97.9 60 18 119/67 98 Intake and Output 06/30/17 06/30/17 07/01/17 15:00 23:00 07:00 Intake Total 1150 ml 980 ml 1390 ml Balance 1150 ml 980 ml 1390 ml Exam General: Well developed,adequately built, not in any acute distress . HEENT: Normocephalic, Atraumatic, No laceration or hematoma; Eyes: PEERL, Conjunctiva clear, Anicteric sclera Neck: Supple without any lymphadenopathy, nontender, no JVD, no carotid bruits, trachea midline, no thyromegaly Cardiac: S1, S2 auscultated, regular rhythm and rate, no mumurs or gallop Pulmonary: Normal respiratory effort. Chest clear to auscultation bilaterally, no adventitious breath sounds GI: Abdomen normal to inspection. Soft, non tender, non- distended, no masses, no rebound tenderness or guarding. Bowel sounds active on all four quadrants Genitourinary: Deferred Extremities: Left knee with mildly oozing wound. No cyanosis, clubbing, or edema. Pulses [2+] bilaterally. Full ROM on all four extremities. No focal weakness appreciated. Neurologic: Alert to person, place, time, and situation. Affect appropriate, intact sensation. Skin: Clean,dry, and intact. No ecchymosis, no rashes, or lesions Results Result Diagram: 06/30/1751906/30/17 05 Medications Medications Current Medications Sodium Chloride (NS) 1,000 ml @ 80 mls/hr [id number] IV Last administered on 07/01t 09:29; Admin Dose 80 MLS/HR; Start 06/25/17 at 03:46 Ondansetron HCl (Zofran Inj) 4 mg Q6H PRN IV NAUSEA AND/OR VOMITING; Start 06/25 at 04:00 Acetaminophen (Tylenol Tab) 650 mg Q6H PRN PO PAIN LEVEL 1-3 OR FEVER Last administered on 06/25/17 14:57; Admin Dose 650 MG; Start 06/25/17 at 04:00 Morphine Sulfate (morphine) 2 mg Q4H PRN IV SEVERE PAIN LEVEL 7-10; Start at 04:00 Docusate Sodium (Colace) 100 mg Q12H PRN PO CONSTIPATION; Start 06/25/17 at 04: 00 Bisacodyl (Dulcolax) 5 mg DAILY PRN PO CONSTIPATION Last administered on 17:50; Admin Dose 5 MG; Start 06/25/17 at 04:00 Famotidine 20 mg 20 mg Q12 PO Last administered on 07/01/17 09:27; Admin Dose 20 MG; Start 06/25/17 at 09:00 Piperacillin Sod/ Tazobactam Sod (Zosyn 3.375gm/ 100 ml (Pmx)) 100 ml @ 200 mls /hr Q8 IVPB Last administered on 07/01/17 05:35; Admin Dose 200 MLS/HR; Start 06/25/17 at 06:00 Miscellaneous Information (Pending [facility] Order For Wound Care) This patient fay... PRN PRN XX WOUND CARE; Start 06/25/17 at 04:30 Mupirocin 1 applic 1 applic DAILY TOP Last administered on 07/01/17 09:28; Admin Dose 1 APPLIC; Start 06/29/17 at 09:00 Vancomycin HCl (Vancocin) 250 ml @ 125 mls/hr Q12H IVPB Last administered on 09:33; Admin Dose 125 MLS/HR; Start 06/29/17 at 10:00 Miscellaneous Information (*Rx Drug Level Order Reminder*) VANCO TROUGH @ 2, 100 ON... ONCE ONCE XX ; Start 07/01/17 at 21:00; Stop 07/01/17 at 21:01 NÉSTOR RAYA NP Jul 01, 2017 11:15
[2017-07-01 14:00] VITALS: BP 129/70; RESP 18
[2017-07-01 19:45] VITALS: BP 107/62; RESP 20
[2017-07-02 02:16] VITALS: BP 109/66; RESP 16
[2017-07-02] MEDS: PIPER-TAZO 3.375 GM IV (PMX) 100 ML IVPB SCH ×3 (06:24→21:14)
[2017-07-02 06:29] LABS: CREATININE 1.07 mg/dl (0.61-1.24)
[2017-07-02 08:25] VITALS: BP 102/61; RESP 16
[2017-07-02] MEDS: VANCOMYCIN 1 GM in NS 250 ML IVPB SCH ×2 (09:05→22:08)
[2017-07-02] MEDS: FAMOTIDINE 20 MG TAB PO SCH ×2 (09:05→21:14)
[2017-07-02] MEDS: MUPIROCIN 2% 22 GM OINT TOP SCH (09:05)
--- NOTE | 2017-07-02 10:06 | PN ---
Date/Time of Note Date/Time of Note DATE: 07/02/17 TIME: 10:04 Assessment/Plan VTE Prophylaxis VTE Prophylaxis Intervention: ambulation Lines/Catheters IV C[facility] Type (from [facility] [place] Urinary Cath still in place: No Assessment/Plan Chief Complaint/Hosp Course 1 . Cellulitis, left knee. -continue current antibiotics and pain control. -Continue wound care and follow-up final wound cultures. Plan: Follow-up wound culture.Estimate DC in AM id CS available. Case discussed with Problems: Subjective 24 Hr Interval Summary Free Text/Dictation No fever. No acute episodes. Exam/Review of Systems Vital Signs Vitals Vital Signs Date Time Temp Pulse Resp B/P Pulse Ox O2 Delivery O2 Flow Rate FiO2 07/02/17 08:25 98.6 56 16 102/61 97 Intake and Output 07/01/17 07/01/17 07/02/17 15:00 23:00 07:00 Intake Total 670 ml 1726 ml 1250 ml Balance 670 ml 1726 ml 1250 ml Exam General: Well developed,adequately built, not in any acute distress . HEENT: Normocephalic, Atraumatic, No laceration or hematoma; Eyes: PEERL, Conjunctiva clear, Anicteric sclera Neck: Supple without any lymphadenopathy, nontender, no JVD, no carotid bruits, trachea midline, no thyromegaly Cardiac: S1, S2 auscultated, regular rhythm and rate, no mumurs or gallop Pulmonary: Normal respiratory effort. Chest clear to auscultation bilaterally, no adventitious breath sounds GI: Abdomen normal to inspection. Soft, non tender, non- distended, no masses, no rebound tenderness or guarding. Bowel sounds active on all four quadrants Genitourinary: Deferred Extremities: Left knee with mildly oozing wound. No cyanosis, clubbing, or edema. Pulses [2+] bilaterally. Full ROM on all four extremities. No focal weakness appreciated. Neurologic: Alert to person, place, time, and situation. Affect appropriate, intact sensation. Skin: Clean,dry, and intact. No ecchymosis, no rashes, or lesions Results Result Diagram: 06/30/17 0520 07/02/17 0518 Results 24 hrs Laboratory Tests Test 07/01/17 21:46 07/02/17 05:18 Vancomycin Level Trough 11.3 Blood Urea Nitrogen 13 Creatinine 1.07 Medications Medications Current Medications Sodium Chloride (NS) 1,000 ml @ 80 mls/hr [id number] IV Last administered on 07/01 09:29; Admin Dose 80 MLS/HR; Start 06/25/17 at 03:46 Ondansetron HCl (Zofran Inj) 4 mg Q6H PRN IV NAUSEA AND/OR VOMITING; Start 06/25 at 04:00 Acetaminophen (Tylenol Tab) 650 mg Q6H PRN PO PAIN LEVEL 1-3 OR FEVER Last administered on 06/25/17 14:57; Admin Dose 650 MG; Start 06/25/17 at 04:00 Morphine Sulfate (morphine) 2 mg Q4H PRN IV SEVERE PAIN LEVEL 7-10; Start at 04:00 Docusate Sodium (Colace) 100 mg Q12H PRN PO CONSTIPATION; Start 06/25/17 at 04: 00 Bisacodyl (Dulcolax) 5 mg DAILY PRN PO CONSTIPATION Last administered on 17:50; Admin Dose 5 MG; Start 06/25/17 at 04:00 Famotidine 20 mg 20 mg Q12 PO Last administered on 07/02/17 09:05; Admin Dose 20 MG; Start 06/25/17 at 09:00 Piperacillin Sod/ Tazobactam Sod (Zosyn 3.375gm/ 100 ml (Pmx)) 100 ml @ 200 mls /hr Q8 IVPB Last administered on 07/02/17 06:24; Admin Dose 200 MLS/HR; Start 06/25/17 at 06:00 Miscellaneous Information (Pending [facility] Order For Wound Care) This patient fay... PRN PRN XX WOUND CARE; Start 06/25/17 at 04:30 Mupirocin 1 applic 1 applic DAILY TOP Last administered on 07/02/17 09:05; Admin Dose 1 APPLIC; Start 06/29/17 at 09:00 Vancomycin HCl (Vancocin) 250 ml @ 125 mls/hr Q12H IVPB Last administered on 09:05; Admin Dose 125 MLS/HR; Start 06/29/17 at 10:00 NÉSTOR RAYA NP Jul 02, 2017 10:05
[2017-07-02] MEDS: SOD CHLORIDE 0.9% 1,000 ML IV SCH ×2 (13:13→23:16)
[2017-07-02 14:49] VITALS: BP 119/73; RESP 16
[2017-07-02 20:10] VITALS: BP 113/66; RESP 20
[2017-07-03 02:00] VITALS: BP 112/79; RESP 19
[2017-07-03] MEDS: SOD CHLORIDE 0.9% 1,000 ML IV SCH (03:04)
[2017-07-03] MEDS: PIPER-TAZO 3.375 GM IV (PMX) 100 ML IVPB SCH (06:11)
[2017-07-03 08:12] VITALS: BP 109/66; RESP 20
[2017-07-03] MEDS: FAMOTIDINE 20 MG TAB PO SCH (08:56)
[2017-07-03] MEDS: MUPIROCIN 2% 22 GM OINT TOP SCH (08:58)
[2017-07-03] MEDS: VANCOMYCIN 1 GM in NS 250 ML IVPB SCH (09:45)
--- NOTE | 2017-07-03 10:45 | PDOCDIS ---
Discharge Instructions CONDITION Patient Condition: Stable HOME CARE INSTRUCTIONS: Special Diet: REGULAR FOLLOW UP/APPOINTMENTS Follow-up Plan 1.Follow up with primary care physician in 1 week If you don't have one please let someone know, we can give you resources that may help you pick one. You may also call your insurance company to assign one to you. Review your medication list with your nurse before leaving and if you need new prescriptions please let your nurse know. I may have made changes to your home medications or given you new prescriptions, please let your primary doctor know as well. Stay compliant with your medications and report any side effects to your PCP or pharmacist. Return to the ER if you have any concerns and cannot reach your doctors or call your insurance company, they usually have a nurse that can help you. 2. Call 911 or go to the nearest emergency room if experiencing loss of consciousness, dizziness, chest pain, shortness of breath, vomiting/abdominal pain, speech difficulties, motor weakness or any unusual symptoms. NÉSTOR RAYA NP Jul 03, 2017 10:45
[2017-07-03] MEDS ORDERED: SULF1TAB31 PO (10:47)
[2017-07-03] MEDS ORDERED: MUPI22OI2 TOP (10:47)
[2017-07-03] MEDS ORDERED: SILV20CR14 TOP (10:54)
[2017-07-03] MEDS ORDERED: SILVER SULFADIAZINE 1% 25 GM CR TOP SCH (12:00)
--- NOTE | 2017-07-03 15:27 | DS ---
Date/Time of Note Date/Time of Note DATE: 07/03/17 TIME: 15:26 Discharge Summary Admission/Discharge Info Admit Date/Time Jun 27, 2017 at 14:34 Discharge Date/Time Jul 03, 2017 at 14:00 Discharge Diagnosis 1 . Cellulitis, left knee.Resolving Patient Condition: Stable Hospital Course This is a 57-year-old male with no significant past medical history, who presented to the emergency room for evaluation of left knee pimple pop with pain and redness associated with some bloody drainage for the past 5 days. 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 Patient did not have any fever or chills. Upon arrival, he did not have any leukocytosis. Patient was given IV antibiotics and was admitted. Patient was continued on IV antibiotics. He was given pain control. Patient had negative blood culture. However, his wound culture was positive for staph aureus. He was also evaluated by wound care and recommended wound care with Silvadene dressing. His wound appeared healing with no further erythema or redness or tenderness. He did not have any fever or leukocytosis. At this time , there is no further inpatient workup indicated and patient is medically stable for discharge on Bactrim 10 day duration. Disposition: Patient will be discharged home today. He was instructed to follow -up with his primary care physician. Patient was instructed to continue antibiotics. He verbalized discharge instructions. Approximately 60 minutes was spent in coordinating the discharge on this patient. Case discussed with [facility] Active Scripts Silver Sulfadiazine* (Silvadene*) 1% - 20 Gm Cream.gm., 1 APPLIC TOP DAILY, #1 TUB cleanse with normal saline, pat dry, apply Silvadene 1% cream, then cut to fit piece of adaptic, 3x3 gauze, wrap with kerlix daily. Prov:NÉSTOR RAYA NP 07/03/17 Sulfamethoxazole/Trimethoprim* (Bactrim Ds* Tablet) 1 Each Tablet, 1 TAB PO BID for 10 Days, #20 TAB Prov:NÉSTOR RAYA NP 07/03/17 Follow-up Plan HOME CARE INSTRUCTIONS: Special Diet: REGULAR FOLLOW UP/APPOINTMENTS Follow-up Plan 1.Follow up with primary care physician in 1 week If you don't have one please let someone know, we can give you resources that may help you pick one. You may also call your insurance company to assign one to you. Review your medication list with your nurse before leaving and if you need new prescriptions please let your nurse know. I may have made changes to your home medications or given you new prescriptions, please let your primary doctor know as well. Stay compliant with your medications and report any side effects to your PCP or pharmacist. Return to the ER if you have any concerns and cannot reach your doctors or call your insurance company, they usually have a nurse that can help you. 2. Call 911 or go to the nearest emergency room if experiencing loss of consciousness, dizziness, chest pain, shortness of breath, vomiting/abdominal pain, speech difficulties, motor weakness or any unusual symptoms. Primary Care Provider NÉSTOR Chu NP Jul 03, 2017 15:27
== END 2017-07-03 14:00 | disposition home or self-care (01) | DRG 603 ==
LOC: E/R 20:43 → PP2 06-25 00:39 → OBSVTOIN 06-27 14:34
PROVIDERS: ADMIT Family Medicine; ATTEND Family Medicine
DX: L03.116 Cellulitis of left lower limb (principal); I89.1 Lymphangitis
CPT/HCPCS: 36415; 73700; 80048; 80053; 80061; 80202; 81001; 82550; 82565; 83036; 83605; 83735; 84443; 84520; 85025; 85610; 85730; 87040; 87070; 93005; 96374; 96375; G0378; J2543; J3370; J7030; J7050; Q9967

== ENCOUNTER 2019-05-31 11:36 | Emergency (ER) | payer OTHER ==
[~2019-05-31] VITALS: Ht 170.2 cm; Wt 66.7 kg
[~2019-05-31 11:36] MED LIST: SILV20CR12 TOP; SULF1TAB31 PO
[2019-05-31 11:38] VITALS: BP 144/84; PULSE 73; RESP 18; Ht 170.2 cm; Wt 66.7 kg
[2019-05-31] MEDS ORDERED: ELIM TOP (12:34)
[2019-05-31] MEDS ORDERED: HYDR-3029 PO (12:34)
--- NOTE | 2019-05-31 12:50 | ERD ---
ER Documentation Chief Complaint Chief Complaint RASH ON BOTH LEGS, ITCHING HPI 59-year-old male presenting with rash to bilateral lower legs and back. Patient states that he has had this for the last week and has not use any medications on it. He states the rash is constant. Very itchy. Denies medical problems. NKDA. Surgical history denies. Social history smokes 6 to 7 cigarettes a day. Patient states his has similar rash. ROS All systems reviewed and are negative except as per history of present illness. Medications Home Meds Active Scripts Hydroxyzine Hcl* (Hydroxyzine Hcl*) 10 Mg Tablet, 10 MG PO Q6H PRN for ITCHING, #30 TAB Prov:MARCELO CORRAL PA-C 05/31/19 Permethrin* (Elimite*) 5% Cr, 1 APPLIC TOP ONCE, #1 TUB Prov:MARCELO CORRAL PA-C 05/31/19 Silver Sulfadiazine* (Silvadene*) 1% - 20 Gm Cream.gm., 1 APPLIC TOP DAILY, #1 TUB cleanse with normal saline, pat dry, apply Silvadene 1% cream, then cut to fit piece of adaptic, 3x3 gauze, wrap with kerlix daily. Prov:NÉSTOR RAYA NP 07/03/17 Sulfamethoxazole/Trimethoprim* (Bactrim Ds* Tablet) 1 Each Tablet, 1 TAB PO BID for 10 Days, #20 TAB Prov:RAYATIMA Juan EXPANDER 07/03/17 Allergies Allergies: Coded Allergies: No Known Allergy (Unverified , 06/25/17) PMhx/Soc History of Surgery: No Anesthesia Reaction: No Hx Neurological Disorder: No Hx Respiratory Disorders: No Hx Cardiac Disorders: No Hx Psychiatric Problems: No Hx Miscellaneous Medical Probl: No Hx Alcohol Use: No Hx Substance Use: No Hx Tobacco Use: Yes Smoking Status: Never smoker FmHx Family History: No diabetes, No coronary disease, No other Physical Exam Vitals Vital Signs Date Temp Pulse Resp B/P (MAP) Pulse Ox O2 O2 Flow FiO2 Time Delivery Rate 05/31/19 97.9 73 18 144/84 97 11:38 (104) Physical Exam GENERAL: The patient is well-appearing, well-nourished, in no acute distress CHEST: Clear to auscultation bilaterally. There are no rales, wheezes or rhonchi. HEART: Regular rate and rhythm. No murmurs, clicks, rubs or gallops. EXTREMITIES: Equal pulses bilaterally. There is no peripheral clubbing, cyanosis or edema. No focal swelling or erythema. Full range of motion. Grossly neurovascularly intact. NEUROLOGIC: Alert and oriented. Cranial nerves II through XII intact. Motor strength in all 4 extremities with 5 out of 5 strength. Sensation grossly intact. Normal speech and gait. SKIN: Excoriated rash noted to bilateral lower legs with small erythematous papules. No pustules or vesicles. Procedures/MDM MDM: 59-year-old male presenting with rash of bilateral lower legs. I have low suspicion for a rash. I have low suspicion for bacterial or viral rash. I believe patient's rash is associated with parasitic etiology and patient will be discharged with supportive medications. Patient is recommended to follow-up with primary care within 1 to 2 days for close evaluation. Patient is told symptoms change or worsen to return immediately to the ER. All questions answered at discharge Departure Diagnosis: Primary Impression: Rash Condition: Stable Patient Instructions: Self-Care for Skin Rashes, Scabies Referrals: [facility] YOU HAVE RECEIVED A MEDICAL SCREENING EXAM AND THE RESULTS INDICATE THAT YOU DO NOT HAVE A CONDITION THAT REQUIRES URGENT TREATMENT IN THE EMERGENCY DEPARTMENT. FURTHER EVALUATION AND TREATMENT OF YOUR CONDITION CAN WAIT UNTIL YOU ARE SEEN IN YOUR DOCTORS OFFICE WITHIN THE NEXT 1-2 DAYS. IT IS YOUR RESPONSIBILITY TO MAKE AN APPOINTMENT FOR FOLOW-UP CARE. IF YOU HAVE A PRIMARY DOCTOR --you should call your primary doctor and schedule an appointment IF YOU DO NOT HAVE A PRIMARY DOCTOR YOU CAN CALL OUR PHYSICIAN REFERRAL HOTLINE AT IF YOU CAN NOT AFFORD TO SEE A PHYSICIAN YOU CAN CHOSE FROM THE FOLLOWING [facility] [id number] [facility] [address] [facility] [facility] [address] [facility] [address] [facility]. [facility] [address] [facility]. [facility]. [address] Additional Instructions: FOLLOW UP WITH YOUR PRIMARY CARE PHYSICIAN TOMORROW.Return to this facility if you are not improving as expected. MARCELO CORRAL PA-C May 31, 2019 12:50
== END 2019-05-31 12:55 | disposition home or self-care (01) ==
LOC: FTE 11:36
DX: R21 Rash and other nonspecific skin eruption (principal); Z87.891 Personal history of nicotine dependence
CPT/HCPCS: 99282